=== PATIENT | male | born 1975 | race Caucasian/White ===

== ENCOUNTER 2017-12-05 12:12 | Day surgery (SDC) | payer OTHER ==
[2017-11-24 11:53] VITALS: BMI 33.5
[~2017-12-05 12:12] MED LIST: LACTATED RINGERS 1,000 ML IV SCH
[2017-12-05 12:41] VITALS: RESP 16; TEMP 98.7
[2017-12-05 12:47] LABS: Glucose,Whole Blood 82 mg/dL (75-99)
[2017-12-05] MEDS ORDERED: PROPOFOL 10 MG/ML 20 ML VIAL IV ONE (13:43)
[2017-12-05] MEDS ORDERED: LIDOCAINE 1% INJ 10MG/ML (20 ML MDV) ONE (13:43)
--- NOTE | 2017-12-05 14:21 | P.PCN ---
Date of Procedure: 12/05/17 Procedure(s) Performed: Procedure: Colonoscopy and biopsy. Preoperative diagnosis: Diarrhea and rectal bleeding, patient has history of proctosigmoiditis. Postoperative diagnosis: Proctosigmoiditis involving the distal 40 cm, otherwise , exam to the terminal ileum within normal. Preparation: HalfLytely prep. Sedation: Was provided by anesthesia. Brief clinical history: The patient is a 41-year-old male who was diagnosed with inflammatory bowel disease back in 1997. The patient last exam was in July 2015 and that showed active colitis involving the distal 20 cm. The patient does well for most of the year and usually has exacerbations once a year that usually responds to Canasa suppositories and tapering dose of steroids. He is currently in a flare that to started in the first week of October while on vacation. He started back on prednisone 50 mg daily and reinitiated Canasa suppositories. This evaluation is scheduled part of his screening because of the duration of his colitis and to assess the activity and extent of his disease to guide therapy as you have done in the past. Procedure: With the patient on his left lateral decubitus position and after informed consent and adequate sedation, the perianal area was inspected and it did not show any fissures or fistulas. There were no masses felt on digital rectal examination. The Olympus CFQ 160L video colonoscope was then inserted in the rectum in the usual fashion and advanced to the cecum. I intubated the ileocecal valve and examined the terminal ileum. Terminal ileum and colon to around 40 cm from the anal verge appeared healthy. Distal to 40 cm there was edema and erythema and friability of the mucosa consistent with active proctosigmoiditis. There were small ulcerations and exudation but no spontaneous bleeding. No polyps, tumors or diverticular disease was noted. I retroflexed the endoscope in the rectum and biopsies were obtained in the sigmoid before the endoscope was withdrawn. Disposition: The patient tolerated the procedure well. Plan: The patient was reassured. Will await pathology results. In the meantime he is to continue tapering his steroids and to continue the mesalamine suppository. Further plans will be made based on his course and biopsy results. As for screening for neoplasia I recommend repeating this exam in around 2-3 years.
[2017-12-05 14:41] VITALS: BP 153/91; PULSE 77
--- NOTE | 2017-12-22 16:41 | CDI ---
Outpatient Documentation Clarification Form Date: 12/23/15 CDS/Family Intervention Specialist Name: Michelle Pattreson Phone: If any questions, call Anna Marie Aguayo Charge Weigher at [phone] Patient Name: Familia Schwartz Admit Date: 12/05/17 Discharge Date: 12/05/17 ATTENTION: The [facility] Coding Staff appreciate your assistance in clarifying documentation. Please respond to the clarification below the line at the bottom and electronically sign. The [facility] Coding staff will review the response and follow-up if needed. Please note: Queries are made part of the Legal Health Record. If you have any questions, please contact the Charge Weigher. Dear Dr. Gonzales, What is the source of the rectal bleeding? Is it related to the ulcerative proctosigmoiditis, or unrelated? Multiple coding resources that we are required to follow state that the physician should identify a source and the injection molding machine tender may not assume. Thank you for your kind consideration. MTDD
== END 2017-12-05 15:23 | disposition home or self-care (01) ==
LOC: ORWHC2ENDO 12:12
DX: K51.30 Ulcerative (chronic) rectosigmoiditis without complications (principal); K62.5 Hemorrhage of anus and rectum; K21.9 Gastro-esophageal reflux disease without esophagitis; Z79.1 Long term (current) use of non-steroidal anti-inflammatories (NSAID); Z79.52 Long term (current) use of systemic steroids; Z79.899 Other long term (current) drug therapy
CPT/HCPCS: 88305; 45380; J2001; J2704

== ENCOUNTER → 2018-07-06 | Outpatient (CLI) | payer OTHER ==
--- NOTE | 2018-07-06 14:36 | XR ---
EXAMINATION TYPE: XR abdomen 2V DATE OF EXAM: 07/06/2018 2:31 PM CLINICAL HISTORY: Dysmenorrhea and urinary frequency. Possible nephrolithiasis. TECHNIQUE: Single supine KUB image of the abdomen is obtained. COMPARISON: None. FINDINGS: Scattered gas is seen in non-distended small bowel loops. Gas and fecal material is seen in non-distended colon. Phleboliths are noted within the low pelvis. There is no visceromegaly, pneumop eritoneum, or abnormal calcification appreciated. The lung bases are clear and the osseous structures are intact. Probable bone islands are seen within the femoral head on the left and femoral neck on t he right. IMPRESSION: Nonobstructive bowel gas pattern. No discrete renal calculi are seen.
== END ==
LOC: RADXRYALE 14:18
PROVIDERS: ATTEND Physician Assistant Medical
DX: R35.0 Frequency of micturition (principal); R30.0 Dysuria
CPT/HCPCS: 74019

== ENCOUNTER → 2018-08-20 | Outpatient (CLI) | payer OTHER ==
--- NOTE | 2018-08-20 11:23 | US ---
EXAMINATION TYPE: US kidneys/renal and bladder DATE OF EXAM: 08/20/2018 COMPARISON: NONE CLINICAL HISTORY: N30.0 Dysuria. EXAM MEASUREMENTS: Right Kidney: 10.2 x 6.1 x 5.8cm Left Kidney: 10.5 x 5.5 x 5.2cm Aorta Prox: 2.2cm Mid: 2.0cm Distal: 2.0cm Bifurcation: obscured by bowel gas Right Kidney: No hydronephrosis or masses seen Left Kidney: No hydronephrosis or masses seen Bladder: wnl Bilateral Jets seen: Yes There is no evidence for hydronephrosis at this point in time. No nephrolithiasis is seen. No keri s are identified. The urinary bladder is anechoic. Bilateral ureteral jets are seen. No aneurysmal change in visualized aorta is present. Liver adjacent to right kidney is heterogeneousl y hyperechoic suggesting fatty infiltration. IMPRESSION: Unremarkable study.
== END | disposition home or self-care (01) ==
LOC: RADUSWWP 07:00
PROVIDERS: ATTEND Family Medicine
DX: N30.00 Acute cystitis without hematuria (principal)
CPT/HCPCS: 76770

== ENCOUNTER → 2018-09-24 | Outpatient (CLI) | payer OTHER ==
[2018-09-24 14:29] LABS: HGB 14.2 gm/dL (13.0-17.5); MCH 27.8 pg (25.0-35.0); MCHC 32.4 g/dL (31.0-37.0); MCV 85.8 fL (80.0-100.0); Mean Platelet Volume 6.6; Platelet Count 419 k/uL (150-450); RBC 5.13 m/uL (4.30-5.90); RDW 13.9 % (11.5-15.5); WBC 9.5 k/uL (3.8-10.6)
[2018-09-24 17:13] LABS: Erythrocyte Sedimentation Rate 25 mm/hr (0-15)
[2018-09-24 18:45] LABS: Albumin 4.1 g/dL (3.80-4.90); Albumin/Globulin Ratio 2.05 (1.60-3.17); Anion Gap 10.8 mmol/L (4.00-12.00); C Reactive Protein 22.2 mg/dL (0.0-0.8); Calcium 8.9 mg/dL (8.7-10.3); Carbon Dioxide 28.2 mmol/L (21.6-31.8); Potassium 3.2 mmol/L (3.5-5.5); Total Bilirubin 2.3 mg/dL (0.3-1.2); Total Protein 6.1 g/dL (6.2-8.2)
== END ==
LOC: LABWHC1 13:54
PROVIDERS: ATTEND Physician Assistant
DX: R19.7 Diarrhea, unspecified (principal)
CPT/HCPCS: 36415; 80053; 83630; 85027; 85652; 86140; 87045; 87046; 87324

== ENCOUNTER 2018-09-25 10:55 | Inpatient (IN) | payer OTHER ==
[2018-09-25] MEDS ORDERED: SODIUM CHLORIDE 0.9% 1,000 ML IV STA ×2 (11:25)
[2018-09-25] MEDS ORDERED: ONDANSETRON 4 MG/2 ML VIAL IVP STA (11:25)
[2018-09-25] MEDS ORDERED: methylPREDNISolone SOD SUCCI 125 MG/2 ML VIAL IV STA (11:26)
--- NOTE | 2018-09-25 11:28 | ED ---
General Adult HPI - General Chief complaint: Abdominal Pain Stated complaint: Rectal bleeding Time Seen by Provider: 09/25/18 11:14 Source: patient, RN notes reviewed, old records reviewed Mode of arrival: ambulatory Limitations: no limitations - History of Present Illness Initial comments: 42-year-old history of ulcerative colitis, presents with 2 month history of abdominal pain, frequent diarrhea. Patient has been on oral steroids 50 mg prednisone for the past 2 months with minimal impact on his symptoms. He does report bloody diarrhea consistent with his ulcerative colitis flare in the past. He reports mild crampy abdominal pain. He has been seen by his senior pharmacy technician as an outpatient, continued on steroids. This is felt to improve his symptoms. He has nausea with no significant vomiting. He does also report intermittent episode of urinary tract infection which was treated with antibiotics. He had C. difficile toxin tested yesterday this was reported as negative by the patient. - Related Data Home Medications Medication Instructions Recorded Confirmed L.acidoph,Paracasei, B.lactis 1 cap PO DAILY 09/25/18 09/25/18 [Probiotic] predniSONE 10 mg PO DAILY 09/25/18 09/25/18 Allergies Allergy/AdvReac Type Severity Reaction Status Date / Time No Known Allergies Allergy Verified 09/25/18 11:18 Review of Systems ROS Statement: Those systems with pertinent positive or pertinent negative responses have been documented in the HPI. ROS Other: All systems not noted in ROS Statement are negative. Past Medical History Past Medical History: GERD/Reflux Additional Past Medical History / Comment(s): ulcerative colitis with blood in stool, History of Any Multi-Drug Resistant Organisms: None Reported Additional Past Surgical History / Comment(s): colonoscopies Past Anesthesia/Blood Transfusion Reactions: No Reported Reaction Past Psychological History: No Psychological Hx Reported Smoking Status: Never smoker Past Alcohol Use History: Occasional Past Drug Use History: None Reported - Past Family History Sister(s) Family Medical History: Pulmonary Embolus, Renal Disease Mother Family Medical History: Renal Disease General Exam Limitations: no limitations General appearance: alert, in no apparent distress Head exam: Present: atraumatic, normocephalic Eye exam: Present: normal appearance, PERRL ENT exam: Present: mucous membranes dry Neck exam: Present: normal inspection. Absent: tenderness, meningismus Respiratory exam: Present: normal lung sounds bilaterally. Absent: respiratory distress, wheezes Cardiovascular Exam: Present: normal rhythm, tachycardia GI/Abdominal exam: Present: soft. Absent: distended, tenderness, guarding, rebound Extremities exam: Present: normal inspection, normal capillary refill. Absent: pedal edema Neurological exam: Present: alert, oriented X3 Psychiatric exam: Present: normal affect, normal mood Skin exam: Present: warm, dry, intact. Absent: cyanosis, diaphoretic Course Vital Signs 09/25/18 11:01 Temperature 98.2 F Pulse Rate 118 H Respiratory 18 Rate Blood Pressure 122/81 O2 Sat by Pulse 100 Oximetry Medical Decision Making - Medical Decision Making 42 -year-old male presenting for generalized abdominal pain, diarrhea, ulcerative colitis flare. Patient has been on oral steroids with minimal improvement. Clinically appears dehydrated. Will be admitted for IV steroids, IV hydration. Case discussed with Dr. Rogers, will admit patient. Urinalysis pending. - Lab Data Result diagrams: 09/25/18 11:50 09/25/18 11:50 Lab Results 09/25/18 09/25/18 09/25/18 Range/Units 11:50 11:50 11:50 WBC 10.5 (3.8-10.6) k/uL RBC 5.03 (4.30-5.90) m/uL Hgb 13.6 (13.0-17.5) gm/dL Hct 42.1 (39.0-53.0) % MCV 83.8 (80.0-100.0) fL MCH 27.1 (25.0-35.0) pg MCHC 32.3 (31.0-37.0) g/dL RDW 13.7 (11.5-15.5) % Plt Count 467 H (150-450) k/uL Neutrophils % 76 % Lymphocytes % 14 % Monocytes % 8 % Eosinophils % 0 % Basophils % 0 % Neutrophils # 8.0 H (1.3-7.7) k/uL Lymphocytes # 1.5 (1.0-4.8) k/uL Monocytes # 0.9 (0-1.0) k/uL Eosinophils # 0.0 (0-0.7) k/uL Basophils # 0.0 (0-0.2) k/uL PT 10.9 (9.0-12.0) sec INR 1.0 (<1.2) APTT 25.8 (22.0-30.0) sec Sodium 138 (137-145) mmol/L Potassium 4.2 (3.5-5.1) mmol/L Chloride 103 (98-107) mmol/L Carbon Dioxide 27 (22-30) mmol/L Anion Gap 8 mmol/L BUN 11 (9-20) mg/dL Creatinine 1.03 (0.66-1.25) mg/dL Est GFR (CKD-EPI)AfAm >90 (>60 ml/min/1.73 sqM) Est GFR (CKD-EPI)NonAf 89 (>60 ml/min/1.73 sqM) Glucose 85 (74-99) mg/dL Calcium 8.9 (8.4-10.2) mg/dL Total Bilirubin 1.4 H (0.2-1.3) mg/dL AST 26 (17-59) U/L ALT 54 (21-72) U/L Alkaline Phosphatase 62 (38-126) U/L Total Protein 6.1 L (6.3-8.2) g/dL Albumin 3.4 L (3.5-5.0) g/dL Amylase 39 (30-110) U/L Lipase 69 (23-300) U/L Disposition Clinical Impression: Abdominal pain, Ulcerative colitis Disposition: ADMITTED IP TO THIS [facility] Condition: Stable Is patient prescribed a controlled substance at d/c from ED?: No Referrals: None,Stated [REFERRING] - 1-2 days Decision to Admit Reason: Admit from EC Decision Date: 09/25/18 Decision Time: 13:02
[2018-09-25 12:44] LABS: Basophils % (A) 0 %; Eosinophils % (A) 0 %; HCT 42.1 % (39.0-53.0); HGB 13.6 gm/dL (13.0-17.5); Lymphocytes # (A) 1.5 k/uL (1.0-4.8); Lymphocytes % (A) 14 %; MCH 27.1 pg (25.0-35.0); MCHC 32.3 g/dL (31.0-37.0); MCV 83.8 fL (80.0-100.0); Mean Platelet Volume 6.9; Monocytes # (A) 0.9 k/uL (0-1.0); Monocytes % (A) 8 %; Neutrophils % (A) 76 %; Platelet Count 467 k/uL (150-450); RBC 5.03 m/uL (4.30-5.90); RDW 13.7 % (11.5-15.5); WBC 10.5 k/uL (3.8-10.6)
[2018-09-25 12:47] LABS: Partial Thromboplastin Time 25.8 sec (22.0-30.0); Prothrombin Time 10.9 sec (9.0-12.0)
[2018-09-25] MEDS ORDERED: NALOXONE 0.4 MG/ML 1 ML VIAL IV PRN (12:58)
[2018-09-25 12:59] LABS: ALT 54 U/L (21-72); AST 26 U/L (17-59); Albumin 3.4 g/dL (3.5-5.0); Alkaline Phosphatase 62 U/L (38-126); Amylase 39 U/L (30-110); Anion Gap 8 mmol/L; Blood Urea Nitrogen 11 mg/dL (9-20); Calcium 8.9 mg/dL (8.4-10.2); Carbon Dioxide 27 mmol/L (22-30); Chloride 103 mmol/L (98-107); Glucose 85 mg/dL (74-99); Lipase 69 U/L (23-300); Potassium 4.2 mmol/L (3.5-5.1); Sodium 138 mmol/L (137-145); Total Bilirubin 1.4 mg/dL (0.2-1.3); Total Protein 6.1 g/dL (6.3-8.2)
[2018-09-25] MEDS ORDERED: MORPHINE SULFATE 4 MG/ML SYRINGE IVP PRN (13:02)
[2018-09-25 13:36] LABS: Amorphous Sediment,Urine Occasional /hpf; Appearance,Urine Cloudy (Clear); Bacteria,Urine Occasional /hpf; Bilirubin,Urine Negative (Negative); Blood,Urine Negative (Negative); Color,Urine Yellow; Glucose,Urine (UA) Trace (Negative); Ketones,Urine Negative (Negative); Leukocyte Esterase,Urine Negative (Negative); Mucus,Urine Many /hpf; Nitrite,Urine Negative (Negative); Protein,Urine 1+ (Negative); RBC,Urine 1 /hpf (0-5); Specific Gravity,Urine 1.025 (1.001-1.035); WBC,Urine 7 /hpf (0-5)
[2018-09-25] MEDS: methylPREDNISolone SOD SUCCI 125 MG/2 ML VIAL IV SCH (17:23)
[2018-09-25] MEDS ORDERED: guaiFENesin SYRUP 100MG/5ML 200 MG/10 ML CUP PO PRN (19:57)
[2018-09-26] MEDS: methylPREDNISolone SOD SUCCI 125 MG/2 ML VIAL IV SCH ×5 (00:10→23:16)
--- NOTE | 2018-09-26 00:53 | P.HPIM ---
History of Present Illness H&P Date: 09/25/18 Chief Complaint: Rectal bleeding Patient is a 42-year-old male with a known history of ulcerative colitis diagnosed about 23 years ago, GERD and history of lower GI bleed came to ER with the complaints of abdominal pain and bloody diarrhea which has been present for the past 2 months on and off. Patient is currently on oral prednisone 50 mg daily for the past 2 months. Patient did have last colonoscopy in November 2017. Patient says that his bloody diarrhea is consistent with ulcerative colitis flare during previous admissions. Abdominal pain is mainly crampy. This is with some nausea. No vomiting. He does also report intermittent episode of urinary tract infection which was treated with antibiotics. He had C. difficile toxin tested yesterday this was reported as negative by the patient. Hemoglobin 13.6 Review of Systems Constitutional: Patient denies any fever or chills . No generalized weakness or weight loss. Abdomen: Patient does have nausea, cramping abdominal pain and bloody diarrhea.. Cardiovascular: Patient denies any chest pain or short of breath no palpitations. Respiratory: patient denied any cough is from production. No shortness of breath Neurologic: Patient denied any numbness or tingling headache. Musculoskeletal: Patient denies any complaints of joint swelling or deformity. Skin: Negative Psychiatric: Negative Endocrine: No heat or cold intolerance. No recent weight gain. Genitourinary: No dysuria or hematuria. All other 14 point ROS negative except the above Past Medical History Past Medical History: GERD/Reflux Additional Past Medical History / Comment(s): ulcerative colitis, lower GI bleed, gastric ulcer as a child, minor varicosities History of Any Multi-Drug Resistant Organisms: None Reported Additional Past Surgical History / Comment(s): colonoscopies, EGD, vasectomy Past Anesthesia/Blood Transfusion Reactions: No Reported Reaction Smoking Status: Former smoker - Past Family History Sister(s) Family Medical History: Pulmonary Embolus, Renal Disease Mother Family Medical History: Renal Disease Additional Family Medical History / Comment(s): Mother has polycystic kidney dx Father Family Medical History: COPD Additional Family Medical History / Comment(s): Father is a smoker. Medications and Allergies Home Medications Medication Instructions Recorded Confirmed Type L.acidoph,Paracasei, B.lactis 1 cap PO DAILY 09/25/18 09/25/18 History [Probiotic] predniSONE 10 mg PO DAILY 09/25/18 09/25/18 History Allergies Allergy/AdvReac Type Severity Reaction Status Date / Time No Known Allergies Allergy Verified 09/25/18 11:18 Physical Exam Vitals: Vital Signs Temp Pulse Pulse Resp BP BP Pulse Ox 09/25/18 20:00 16 09/25/18 19:53 98.1 F 65 18 115/68 97 09/25/18 14:50 98.1 F 85 16 113/68 96 09/25/18 14:22 16 09/25/18 13:36 98.1 F 91 16 107/62 99 09/25/18 11:01 98.2 F 118 H 18 122/81 100 Intake and Output 09/25/18 09/25/18 09/25/18 06:59 14:59 22:59 Intake Total 1000 350 Balance 1000 350 Intake: Amount of Fluid Infused ( 1000 ml) Oral 350 Other: Voiding Method Toilet Toilet # Voids 0 2 # Bowel Movements 0 1 Weight 99.79 kg Results CBC & Chem 7: 09/25/18 11:50 09/25/18 11:50 Labs: Abnormal Lab Results - Last 24 Hours (Table) 09/25/18 09/25/18 09/25/18 Range/Units 11:50 11:50 13:01 Plt Count 467 H (150-450) k/uL Neutrophils # 8.0 H (1.3-7.7) k/uL Total Bilirubin 1.4 H (0.2-1.3) mg/dL Total Protein 6.1 L (6.3-8.2) g/dL Albumin 3.4 L (3.5-5.0) g/dL Urine Protein 1+ H (Negative) Urine Glucose (UA) Trace H (Negative) Urine WBC 7 H (0-5) /hpf Amorphous Sediment Occasional H (None) /hpf Urine Bacteria Occasional H (None) /hpf Urine Mucus Many H (None) /hpf Microbiology - Last 24 Hours (Table) 09/25/18 13:01 Urine Culture - Preliminary Urine,Voided Thrombosis Risk Factor Assmnt - DVT/VTE Prophylaxis DVT/VTE Prophylaxis: Mechanical Prophylaxis ordered - Choose All That Apply Any of the Below Risk Factors Present?: Yes Each Factor Represents 1 point: Age 41-60 years, Hx of IBD, Obesity (BMI >25) Other Risk Factors: Yes Each Risk Factor Represents 3 Points: Family history of DVT/PE Other congenital or acquired thrombophilia - If yes, enter type in comment: No Thrombosis Risk Factor Assessment Total Risk Factor Score: 6 Thrombosis Risk Factor Assessment Level: High Risk Assessment and Plan Assessment: Bloody diarrhea with acute flareup of ulcerative colitis. Hemoglobin is fairly stable at 13.6. Cramping abdominal pain secondary to above History of ulcerative colitis for the past 23 years GERD DVT prophylaxis with SCDs Plan: Patient will be continued on IV steroids. IV fluids and pain management. Nothing by mouth. GI will be consulted. Follow closely and further recommendations based on the clinical course. Time with Patient: Greater than 30
[2018-09-26] MEDS: ONDANSETRON 4 MG/2 ML VIAL IVP PRN ×2 (05:02→18:43)
[2018-09-26 06:42] LABS: Basophils % (A) 0 %; Eosinophils % (A) 0 %; HCT 35.5 % (39.0-53.0); HGB 11.6 gm/dL (13.0-17.5); Lymphocytes # (A) 0.6 k/uL (1.0-4.8); Lymphocytes % (A) 9 %; MCH 28.2 pg (25.0-35.0); MCHC 32.8 g/dL (31.0-37.0); MCV 86.2 fL (80.0-100.0); Mean Platelet Volume 6.1; Monocytes # (A) 0.2 k/uL (0-1.0); Monocytes % (A) 4 %; Neutrophils # (A) 5.6 k/uL (1.3-7.7); Neutrophils % (A) 86 %; Platelet Count 427 k/uL (150-450); RBC 4.12 m/uL (4.30-5.90); RDW 13.7 % (11.5-15.5); WBC 6.5 k/uL (3.8-10.6)
--- NOTE | 2018-09-26 13:04 | P.CONS ---
History of Present Illness - Reason for Consult Consult date: 09/26/18 Ulcerative colitis Requesting physician: Liane Rogers - Chief Complaint Abdominal pain and bloody diarrhea - History of Present Illness 42-year-old gentleman with a history of long-standing ulcerative colitis for 24 years maintained on prednisone and Canasa suppository admitted with intractable lower abdominal pain with multiple episodes of blood-tinged diarrhea. Patient states his symptoms have been ongoing for at least 2 months duration and he's been trying to manage in the outpatient setting with high-dose steroids and Canasa suppositories. Last Canasa suppository was about a week ago secondary to multiple bowel movements daily unable to retain the suppository. He was seen in the GI office earlier this week and provided a stool specimen for C. diff which was negative. Admission white count 10.5. Hemoglobin 13.6 presently 11.6. INR 1.0. BUN 11. Creatinine 1.0. CRP 71. ESR 25. Denies fever or chills hematemesis or melena. Colonoscopy November 2017 evidence of proctosigmoiditis involving the distal 40 cm otherwise exam to the terminal ileum within normal limits. Biopsies consistent with active colitis. Review of Systems Constitutional: Denies fever, chills, sweats, weight gain, or loss. HEENT: Negative for migraines, blurred vision or loss, earaches, drainage, tinnitus, oral mucosal lesions, dysphagia, or odynophagia. Cardiac: Negative for chest pain, arrhythmias, or palpitation. Respiratory: Negative for shortness of breath, hemoptysis, cough, or sputum production. Gastrointestinal: See HPI for pertinent findings. Genitourinary: Negative for hematuria, urgency, frequency, polyuria, dysuria, or penile discharge. Musculoskeletal: Negative for muscle aches, swelling, arthritis, and arthralgias. Neurologic: Negative for stroke or TIA. Endocrine: Negative for thyroid problems. Skin: Negative for rash or itching. Psychiatric: Negative history for depression and anxiety Past Medical History Past Medical History: GERD/Reflux Additional Past Medical History / Comment(s): ulcerative colitis, lower GI bleed, gastric ulcer as a child, minor varicosities History of Any Multi-Drug Resistant Organisms: None Reported Additional Past Surgical History / Comment(s): colonoscopies, EGD, vasectomy Past Anesthesia/Blood Transfusion Reactions: No Reported Reaction Smoking Status: Former smoker - Past Family History Sister(s) Family Medical History: Pulmonary Embolus, Renal Disease Mother Family Medical History: Renal Disease Additional Family Medical History / Comment(s): Mother has polycystic kidney dx Father Family Medical History: COPD Additional Family Medical History / Comment(s): Father is a smoker. Medications and Allergies Home Medications Medication Instructions Recorded Confirmed Type L.acidoph,Paracasei, B.lactis 1 cap PO DAILY 09/25/18 09/25/18 History [Probiotic] predniSONE 10 mg PO DAILY 09/25/18 09/25/18 History Allergies Allergy/AdvReac Type Severity Reaction Status Date / Time No Known Allergies Allergy Verified 09/25/18 11:18 Physical Exam Vitals: Vital Signs Temp Pulse Pulse Resp BP BP Pulse Ox 09/26/18 08:00 53 L 16 09/26/18 05:35 97.7 F 53 L 16 125/79 98 09/26/18 01:34 16 09/25/18 20:00 16 09/25/18 19:53 98.1 F 65 18 115/68 97 09/25/18 14:50 98.1 F 85 16 113/68 96 09/25/18 14:22 16 09/25/18 13:36 98.1 F 91 16 107/62 99 Intake and Output 09/25/18 09/26/18 09/26/18 22:59 06:59 14:59 Intake Total 350 1250 Balance 350 1250 Intake: Intake, IV Titration 800 Amount Sodium Chloride 0.9% 1, 800 000 ml @ 100 mls/hr IV . Q10H STA Rx#:[id number] Oral 350 450 Other: Voiding Method Toilet Toilet Toilet # Voids 2 2 # Bowel Movements 1 1 1 General appearance: The patient is alert, oriented, in no acute distress. HET: Head is normocephalic and atraumatic. Pupils are equal and reactive. Oropharynx is clear without lesions. Neck: Supple without lymphadenopathy. Trachea midline. Heart: S1 S2. Regular rate and rhythm. Lungs: No crackles or wheezes are heard. Abdomen: Soft, minimal mild tenderness in the bilateral lower abdomen, nondistended with bowel sounds. No peritoneal signs. No palpable organomegaly or masses. Extremities: Normal skin color and turgor. No cyanosis, rash, ulceration, clubbing, or edema. Radial and pedal pulses are 2/4 bilaterally. Neurological: No focal deficits. Strength and sensation are grossly intact. Results CBC & Chem 7: 09/26/18 06:31 09/25/18 11:50 Labs: Abnormal Lab Results - Last 24 Hours (Table) 09/25/18 09/26/18 09/26/18 Range/Units 13:01 06:31 06:31 RBC 4.12 L (4.30-5.90) m/uL Hgb 11.6 L (13.0-17.5) gm/dL Hct 35.5 L (39.0-53.0) % Lymphocytes # 0.6 L (1.0-4.8) k/uL C-Reactive Protein 71.0 H (<10.0) mg/L Urine Protein 1+ H (Negative) Urine Glucose (UA) Trace H (Negative) Urine WBC 7 H (0-5) /hpf Amorphous Sediment Occasional H (None) /hpf Urine Bacteria Occasional H (None) /hpf Urine Mucus Many H (None) /hpf Microbiology - Last 24 Hours (Table) 09/25/18 13:01 Urine Culture - Preliminary Urine,Voided Assessment and Plan (1) Exacerbation of ulcerative colitis Narrative/Plan: 42-year-old male admitted with acute lower abdominal pain multiple blood tinged bowel movements with a history of long-standing ulcerative colitis. Current Visit: Yes Status: Acute Code(s): K51.90 - ULCERATIVE COLITIS, UNSPECIFIED, WITHOUT COMPLICATIONS SNOMED Code(s): 395803601 (2) Elevated C-reactive protein (CRP) Current Visit: Yes Status: Acute Code(s): R79.82 - ELEVATED C-REACTIVE PROTEIN (CRP) SNOMED Code(s): 956533209531052 (3) Hematochezia Narrative/Plan: Component of acute mild blood loss anemia Current Visit: Yes Status: Acute Code(s): K92.1 - MELENA SNOMED Code(s): 133919391 Plan: 1. CT A/P evaluate ulcerative colitis. IV Solu-Medrol 60 mg every 6 hours. We'll start balsalazide 750 mg 3 tablets 3 times a day. Abdominal pain improved no clinical signs of peritonitis no evidence of leukocytosis or fever. Light liquid diet with soup and crackers for now. Will follow closely with you. Thank you for this kind referral and the opportunity to participate in the care of your patient. This consultation was discussed with Dr. Gonzales. The impression and plan of care have been directed as dictated.
[2018-09-26 15:12] VITALS: BMI 30.7
[2018-09-26] MEDS: IOPAMIDOL-300 CONTRAST 30 ML VIAL (ORAL USE) PO PRN ×2 (15:12→16:06)
--- NOTE | 2018-09-26 17:29 | CT ---
EXAMINATION TYPE: CT abdomen pelvis w con DATE OF EXAM: 09/26/2018 COMPARISON: None HISTORY: Ulcerative colitis, rectal bleeding and abdominal pain. CT DLP: 1256.4 mGycm Automated exposure control for dose reduction was used. TECHNIQUE: Helical acquisition of images was performed from the lung bases through the pelvis. CONTRAST: Performed with Oral Contrast and with IV Contrast, patient injected with 100 mL of Isovue M300. FINDINGS: Lung bases are clear. There is no pleural effusion. Heart size is normal. There is no pericardial eff usion. Liver spleen pancreas gallbladder appear normal. Stomach appears normal. Bile ducts are not dilated. There is no adrenal mass. Kidneys show satisfactory contrast opacification. There is no hydronephrosi s. Ureters are not dilated. Bladder distends smoothly. There is no inguinal hernia. There is no free fluid in the pelvis. There is no evidence of a pelvic mass. Appendix appears normal. There is no mese nteric edema. I see no intestinal wall thickening. The left colon is empty. Lumbar spine is intact. I see no bony destructive process. Bony pelvis appears intact. IMPRESSION: NEGATIVE CT SCAN ABDOMEN AND PELVIS. I DO NOT SEE EVIDENCE FOR COLITIS. LEFT COLON IS ESSENTIALLY EMP TY. NO WALL THICKENING TO SUGGEST INFLAMMATORY PROCESS.
[2018-09-26] MEDS: BALSALAZIDE DISODIUM 750 MG CAPSULE PO SCH ×2 (17:44→20:08)
[2018-09-27] MEDS: ONDANSETRON 4 MG/2 ML VIAL IVP PRN (05:46)
[2018-09-27] MEDS: methylPREDNISolone SOD SUCCI 125 MG/2 ML VIAL IV SCH ×2 (05:47→17:46)
[2018-09-27] MEDS: BALSALAZIDE DISODIUM 750 MG CAPSULE PO SCH ×3 (07:35→20:36)
[2018-09-27 07:43] LABS: Basophils % (A) 0 %; Eosinophils % (A) 0 %; HCT 35.1 % (39.0-53.0); HGB 11.3 gm/dL (13.0-17.5); Hypochromasia Slight; Lymphocytes # (A) 0.7 k/uL (1.0-4.8); Lymphocytes % (A) 9 %; MCH 27.7 pg (25.0-35.0); MCV 86.4 fL (80.0-100.0); Mean Platelet Volume 6.2; Monocytes # (A) 0.5 k/uL (0-1.0); Monocytes % (A) 6 %; Neutrophils # (A) 6.4 k/uL (1.3-7.7); Neutrophils % (A) 84 %; Platelet Count 422 k/uL (150-450); RBC 4.07 m/uL (4.30-5.90); RDW 13.9 % (11.5-15.5); WBC 7.6 k/uL (3.8-10.6)
--- NOTE | 2018-09-27 14:55 | P.PN ---
Subjective Progress Note Date: 09/27/18 Interval history:Patient is a 42-year-old male with a known history of ulcerative colitis diagnosed about 23 years ago, GERD and history of lower GI bleed came to ER with the complaints of abdominal pain and bloody diarrhea which has been present for the past 2 months on and off. Patient is currently on oral prednisone 50 mg daily for the past 2 months. Patient did have last colonoscopy in November 2017. Patient says that his bloody diarrhea is consistent with ulcerative colitis flare during previous admissions. Abdominal pain is mainly crampy. This is with some nausea. No vomiting. He does also report intermittent episode of urinary tract infection which was treated with antibiotics. He had C. difficile toxin tested yesterday this was reported as negative by the patient. Hemoglobin 13.6 09/27/2018 denies abdominal pain, reports multiple bowel movements, maintaining stool chart. Tested negative for C. difficile colitis. Reports nausea, no emesis. consuming 100% of soft diet. CT reported as negative scan, no evidence for colitis, no wall thickening. CRP improved. Staff reports bright red mucousy blood in stool. Balsalazide initiated as per GI. IV steroids decreased. Hemoglobin 11.3. Afebrile. Objective - Vital Signs Vital signs: Vital Signs Temp 98.5 F 09/27/18 12:39 Pulse 81 09/27/18 12:39 Resp 20 09/27/18 12:39 BP 133/80 09/27/18 12:39 Pulse Ox 97 09/27/18 12:39 Intake & Output 09/26/18 09/27/18 09/27/18 18:59 06:59 18:59 Intake Total 240 600 Balance 240 600 Weight 99.79 kg Intake: Oral 240 600 Other: Voiding Method Toilet Toilet Toilet # Voids 2 2 # Bowel Movements 0 6 - Exam PHYSICAL EXAM: VITAL SIGNS: As above GENERAL: Sitting up at bedside table, eating lunch, no acute distress HEENT: Conjunctivae normal. eyes normal. Oral mucosa moist NECK: No JVD. No thyroid enlargement. No LNs CARDIOVASCULAR: S1, S2 muffled. No murmur RESPIRATION: Breath sounds diminished in the bases. No rhonchi or crackles. ABDOMEN: Soft, nondistended, minimal diffuse tenderness bilateral lower quadrants. No guarding. no masses palpable.Bowel sounds heard. LEGS: No edema. no swelling PSYCHIATRY: Alert and oriented -3, mood and affect normal. NERVOUS SYSTEM: Cranial N 2-12 grossly normal. Moves all 4 limbs. Diffuse weakness No focal deficits. Joints: No active swelling. No inflammation. - Labs CBC & Chem 7: 09/27/18 07:03 09/25/18 11:50 Labs: Abnormal Lab Results - Last 24 Hours (Table) 09/27/18 09/27/18 Range/Units 07:03 07:03 RBC 4.07 L (4.30-5.90) m/uL Hgb 11.3 L (13.0-17.5) gm/dL Hct 35.1 L (39.0-53.0) % Lymphocytes # 0.7 L (1.0-4.8) k/uL C-Reactive Protein 29.3 H (<10.0) mg/L Microbiology - Last 24 Hours (Table) 09/25/18 11:50 Blood Culture - Preliminary Blood No Growth after 48 hours 09/25/18 13:01 Urine Culture - Final Urine,Voided Assessment and Plan Assessment: Bloody diarrhea with acute exacerbation of ulcerative colitis. Hemoglobin stable. Cramping abdominal pain secondary to above History of ulcerative colitis for the past 23 years GERD Plan: Continue on current medication regime ,monitoring and symptomatic treatment. Maintain Stool chart at bedside.IV steroid tapering as per GI. Diet as per GI .DVT prophylaxis with SCDs. Close monitoring of hemoglobin with labs ordered for a.m. Prognosis guarded given multiple complex medical issues. The impression and plan of care has been dictated as directed. : I performed a history and examination of this patient, discussed the same with the dictator. I agree with the dictator's note ,documented as a scribe. Any additional findings or plans will be noted.
[2018-09-27 21:43] VITALS: RESP 16
[2018-09-28] MEDS: methylPREDNISolone SOD SUCCI 125 MG/2 ML VIAL IV SCH (04:48)
[2018-09-28 04:54] VITALS: BP 117/73; PULSE 56; TEMP 97.6
[2018-09-28 07:25] LABS: Basophils % (A) 0 %; Eosinophils % (A) 0 %; HCT 37.8 % (39.0-53.0); HGB 11.9 gm/dL (13.0-17.5); Hypochromasia Slight; Lymphocytes # (A) 1.1 k/uL (1.0-4.8); Lymphocytes % (A) 14 %; MCH 27.2 pg (25.0-35.0); MCHC 31.5 g/dL (31.0-37.0); MCV 86.3 fL (80.0-100.0); Monocytes # (A) 0.5 k/uL (0-1.0); Monocytes % (A) 6 %; Neutrophils # (A) 6.5 k/uL (1.3-7.7); Neutrophils % (A) 79 %; Platelet Count 487 k/uL (150-450); RBC 4.37 m/uL (4.30-5.90); RDW 13.9 % (11.5-15.5); WBC 8.2 k/uL (3.8-10.6)
[2018-09-28 07:35] LABS: Anion Gap 4 mmol/L; Blood Urea Nitrogen 13 mg/dL (9-20); Calcium 8.6 mg/dL (8.4-10.2); Carbon Dioxide 32 mmol/L (22-30); Chloride 104 mmol/L (98-107); Glucose 131 mg/dL (74-99); Potassium 4.3 mmol/L (3.5-5.1); Sodium 140 mmol/L (137-145)
[2018-09-28] MEDS: BALSALAZIDE DISODIUM 750 MG CAPSULE PO SCH (09:16)
--- NOTE | 2018-09-28 12:44 | P.PN ---
Subjective Progress Note Date: 09/28/18 Principal diagnosis: abdominal pain exacerbation of ulcerative colitis Feels well. Passing intermittent nonbloody bowel movements. Abdominal pain minimal. Tolerating advance diet. Hemoglobin stable 11.9. Few nonbloody emesis only when having a bowel movement over the last 24 hours. Objective - Vital Signs Vital signs: Vital Signs Temp 97.6 F 09/28/18 04:53 Pulse 56 L 09/28/18 04:53 Resp 16 09/28/18 04:53 BP 117/73 09/28/18 04:53 Pulse Ox 94 L 09/28/18 04:53 Intake & Output 09/27/18 09/28/18 09/28/18 18:59 06:59 18:59 Intake Total 600 Balance 600 Weight 99.79 kg Intake: Oral 600 Other: Voiding Method Toilet Toilet Toilet # Voids 1 # Bowel Movements 3 5 - Exam General appearance: The patient is alert, oriented, in no acute distress. HET: Head is normocephalic and atraumatic. Pupils are equal and reactive. Oropharynx is clear without lesions. Neck: Supple without lymphadenopathy. Trachea midline. Heart: S1 S2. Regular rate and rhythm. Lungs: No crackles or wheezes are heard. Abdomen: Soft, very mild tenderness bilateral lower abdomen, nondistended with bowel sounds. No peritoneal signs. No palpable organomegaly or masses. Extremities: Normal skin color and turgor. No cyanosis, rash, ulceration, clubbing, or edema. Radial and pedal pulses are 2/4 bilaterally. Neurological: No focal deficits. Strength and sensation are grossly intact. - Labs CBC & Chem 7: 09/28/18 07:12 09/28/18 07:12 Labs: Abnormal Lab Results - Last 24 Hours (Table) 09/28/18 09/28/18 Range/Units 07:12 07:12 Hgb 11.9 L (13.0-17.5) gm/dL Hct 37.8 L (39.0-53.0) % Plt Count 487 H (150-450) k/uL Carbon Dioxide 32 H (22-30) mmol/L Glucose 131 H (74-99) mg/dL Microbiology - Last 24 Hours (Table) 09/25/18 11:50 Blood Culture - Preliminary Blood No Growth after 48 hours Assessment and Plan (1) Exacerbation of ulcerative colitis Narrative/Plan: 42-year-old male admitted with acute lower abdominal pain multiple blood tinged bowel movements with a history of long-standing ulcerative colitis. CT A/P unremarkable for inflammatory changes. CRP improved with IV steroid therapy. Current Visit: Yes Status: Acute Code(s): K51.90 - ULCERATIVE COLITIS, UNSPECIFIED, WITHOUT COMPLICATIONS SNOMED Code(s): 018250142 (2) Elevated C-reactive protein (CRP) Current Visit: Yes Status: Acute Code(s): R79.82 - ELEVATED C-REACTIVE PROTEIN (CRP) SNOMED Code(s): 390647842870275 (3) Hematochezia Narrative/Plan: Improved Current Visit: Yes Status: Acute Code(s): K92.1 - MELENA SNOMED Code(s): 469047911 (4) Anemia Narrative/Plan: Component of acute blood loss. Current Visit: Yes Status: Acute Code(s): D64.9 - ANEMIA, UNSPECIFIED SNOMED Code(s): 618636735 Plan: 1. Agreeable for discharge. Prednisone taper advised prescription given. Balsalazide 750 mg 3 tablets 3 times a day prescription provided. Return to office in [address] Gonzales for reevaluation. Light soft GI diet as tolerated. Assessment and plan of care discussed with Dr. Gonzlaes.
--- NOTE | 2018-09-28 16:07 | P.DS ---
Providers Date of admission: 09/25/18 12:58 Expected date of discharge: 09/28/18 Attending physician: Liane Rogers Consults: 09/25/18 12:58 Consult Physician Routine Consulting Provider: Jose Ramon Gonzales Consult Reason/Comments: UC Do you want consulting provider notified?: Yes [facility] Course: Final Diagnoses: Bloody diarrhea with acute exacerbation of ulcerative colitis. Hemoglobin stable. Cramping abdominal pain secondary to above History of ulcerative colitis for the past 23 years GERD Hospital Course:Patient is a 42-year-old male with a known history of ulcerative colitis diagnosed about 23 years ago, GERD and history of lower GI bleed came to ER with the complaints of abdominal pain and bloody diarrhea which has been present for the past 2 months on and off. Patient is currently on oral prednisone 50 mg daily for the past 2 months. Patient did have last colonoscopy in November 2017. Patient says that his bloody diarrhea is consistent with ulcerative colitis flare during previous admissions. Abdominal pain is mainly crampy. This is with some nausea. No vomiting. He does also report intermittent episode of urinary tract infection which was treated with antibiotics. He had C. difficile toxin tested yesterday this was reported as negative by the patient. Hemoglobin 13.6 09/27/2018 denies abdominal pain, reports multiple bowel movements, maintaining stool chart. Tested negative for C. difficile colitis. Reports nausea, no emesis. consuming 100% of soft diet. CT reported as negative scan, no evidence for colitis, no wall thickening. CRP improved. Staff reports bright red mucousy blood in stool. Balsalazide initiated as per GI. IV steroids decreased. Hemoglobin 11.3. Afebrile. 09/28/2018 Steroid taper in progress. tolerating advanced diet. Minimal abdominal discomfort reported.One emesis over the last 24 hours consisting of food particles, nonbloody. Bowel movements improving, reporting intermittent nonbloody bowel movements-none this morning. Hemoglobin 11.9. Significant clinical improvement. Cleared by GI for discharge. Patient is being discharged home in a stable condition with guarded prognosis. EXAM: GENERAL: alert and oriented 3, no acute distress CARDIOVASCULAR: S1, S2 muffled. No murmur RESPIRATION: Breath sounds diminished in the bases. No rhonchi or crackles. ABDOMEN: Soft, nondistended, minimal diffuse tenderness bilateral lower quadrants. No guarding. no masses palpable.Bowel sounds heard. NERVOUS SYSTEM: No focal deficits. The impression and plan of care has been dictated as directed. : I performed a history and examination of this patient, discussed the same with the dictator. I agree with the dictator's note ,documented as a scribe. Any additional findings or plans will be noted. Time taken: 35 minutes Patient Condition at Discharge: Stable Plan - Discharge Summary Discharge Rx Participant: No New Discharge Prescriptions: New predniSONE 0 mg PO DIRECTED #123 tab Balsalazide Disodium 2,250 mg PO TID #270 capsule Continue L.acidoph,Paracasei, B.lactis [Probiotic] 1 cap PO DAILY Discontinued predniSONE 10 mg PO DAILY Discharge Medication List L.acidoph,Paracasei, B.lactis [Probiotic] 1 cap PO DAILY 09/25/18 [History] Balsalazide Disodium 2,250 mg PO TID #270 capsule 09/28/18 [Rx] predniSONE 0 mg PO DIRECTED #123 tab 09/28/18 [Rx] Follow up Appointment(s)/Referral(s): Jose Ramon Gonzales MD [STAFF PHYSICIAN] - 10/11/18 3:45 pm Edinson Avina DO [Primary Care Provider] - 10/03/18 1:20 pm Ambulatory/Diagnostic Orders: Complete Blood Count w/diff [LAB.AMB] Time Frame: 3 Days, Location: None Selected Patient Instructions/Handouts: Prednisone (By mouth), Balsalazide (By mouth), Ulcerative Colitis (DC), Acute Abdominal Pain (DC) Discharge Disposition: HOME SELF-CARE
== END 2018-09-28 15:40 | disposition home or self-care (01) | DRG 386 ==
LOC: EC 10:55 → 3NMEDONC 12:58
PROVIDERS: ADMIT Internal Medicine; ATTEND Internal Medicine
DX: K51.911 Ulcerative colitis, unspecified with rectal bleeding (principal); D62 Acute posthemorrhagic anemia; E86.0 Dehydration; Z79.52 Long term (current) use of systemic steroids; Z79.899 Other long term (current) drug therapy; Z87.11 Personal history of peptic ulcer disease; Z87.891 Personal history of nicotine dependence; Z87.440 Personal history of urinary (tract) infections; Z84.1 Family history of disorders of kidney and ureter; Z82.5 Family history of asthma and other chronic lower respiratory diseases; Z82.71 Family history of polycystic kidney; Z83.2 Family history of diseases of the blood and blood-forming organs and certain disorders involving the immune mechanism
CPT/HCPCS: 36415; 74177; 80048; 80053; 81001; 82150; 83690; 85025; 85610; 85730; 86140; 87040; 87086; 87324; 96361; 96374; 96375; 99285